=== PATIENT | female | born 1985 | race Caucasian/White ===

== ENCOUNTER 2024-06-10 07:59 | Outpatient (CLI) | payer OTHER, SELFPAY ==
--- NOTE | 2024-06-10 09:37 | W.ANESCHARGE ---
Anesthesia Charges Start Date/Time Anesthesia Start Date: 06/10/24 Anesthesia Start Time: 08:36 Stop Date/Time Anesthesia Stop Date: 06/10/24 Anesthesia Stop Time: 09:35
== END 2024-06-10 08:00 | disposition home or self-care (01) ==
LOC: OP CLINIC 07:59
PROVIDERS: PCP Family Medicine; Visit Provider Surgery
DX: Z12.11 Encounter for screening for malignant neoplasm of colon (principal); Z86.0100 Personal history of colon polyps, unspecified
CPT/HCPCS: 00812; 45378; J2704

== ENCOUNTER 2024-06-16 08:49 | Outpatient (CLI) | payer OTHER, SELFPAY | END 2024-06-16 08:50 | disposition home or self-care (01) | PROVIDERS: PCP Family Medicine; Visit Provider Obstetrics & Gynecology | DX: R63.5 Abnormal weight gain (principal) | CPT/HCPCS: 80061; 84443 ==

== ENCOUNTER 2025-05-20 08:46 | Outpatient (CLI) | payer OTHER, SELFPAY ==
[2025-05-20 09:45] LABS: Albumin* 4.3 g/dL (3.3-5.0); Chloride* 105 mmol/L (96-114)
[2025-05-20 09:46] LABS: Potassium* 4.3 mmol/L (3.6-5.1); Sodium* 136 mmol/L (135-149)
[2025-05-20 09:48] LABS: Anion Gap 4 mEq/L (7-15); Blood Urea Nitrogen* 21 mg/dL (5-24); Carbon Dioxide* 27 mmol/L (20-32); Creatinine* 0.8 mg/dL (0.5-1.5); Estimated Glomerular Filt Rate 95 ml/min
[2025-05-20 09:49] LABS: Alanine Aminotransferase* 30 U/L (4-35); Alkaline Phosphatase* 51 U/L (40-150); Aspartate Amino Transferase* 41 U/L (12-35); Bilirubin Direct* 0.2 mg/dL (0.0-0.5); Bilirubin Total* 0.5 mg/dL (0.1-1.5); Calcium* 8.7 mg/dL (8.4-10.6); Glucose* 92 mg/dL (60-115); Total Protein* 7.0 g/dL (6.0-8.3)
[2025-05-20 10:46] LABS: Hematocrit* 42.7 % (33.0-51.0); Hemoglobin* 14.3 gm/dL (12.0-16.0); Mean Corpuscular HGB Conc 34 gm/dL (32-36); Mean Corpuscular Hemoglobin 31 pg (26-34); Mean Corpuscular Volume 94 fL (80-100); Red Blood Count* 4.55 m/uL (4.00-5.20); White Blood Count* 5.08 K/uL (4.50-11.00)
[2025-05-20 10:54] LABS: Slide Review Reflex No
== END 2025-05-20 08:47 | disposition home or self-care (01) ==
LOC: NPINS 08:47
PROVIDERS: PCP Family Medicine; Visit Provider Emergency Medicine
DX: R73.03 Prediabetes (principal); E66.9 Obesity, unspecified
CPT/HCPCS: 80048; 80076; 84443; 85027